=== PATIENT | male | born 1985 | race Asian ===

== ENCOUNTER 2020-11-27 16:50 | Emergency (ER) | payer MEDICAID ==
[~2020-11-27] VITALS: Ht 165.1 cm; Wt 61.7 kg
--- NOTE | 2020-11-27 17:27 | NUR ---
[id number] FROM [facility] [employer]ING [facility]. 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 PT SLEEPY, AWAKEN BY VERBAL STIMULI & WILL GO BACK TO SLEEP. RR EVEN & UNLABORED. PLACED ON WATER AND GAS HELPER, SR. PT SEEN & EVAL'D BY DR. GARNETT. WILL CONT TO MONITOR.
[2020-11-27 17:30] LABS: BASOPHILS % (AUTO) 0.4 % (0.0-2.0); EOSINOPHILS % (AUTO) 4.6 % (0.0-6.0); HEMATOCRIT 39 % (39-51); HEMOGLOBIN 12.9 g/dL (13.5-17.5); LYMPHOCYTES # (AUTO) 2.2 /CMM (0.8-4.8); LYMPHOCYTES % (AUTO) 28.5 % (20.0-44.0); MEAN CORPUSCULAR HGB CONC 33 g/dl (31.0-36.0); MEAN CORPUSCULAR VOLUME 91 fL (80-96); NEUTROPHILS # (AUTO) 4.2 /CMM (1.8-8.9); NEUTROPHILS % (AUTO) 53.5 % (43.0-81.0); PLATELET COUNT (AUTO) 267 /CMM (150-450); RED BLOOD CELL COUNT(AUTO) 4.28 MIL/uL (4.5-6.0); WHITE BLOOD COUNT (AUTO) 7.8 K/uL (4.3-11.0)
--- NOTE | 2020-11-27 18:01 | NUR ---
PT TO CT VIA [facility].
[2020-11-27 18:15] LABS: CALCIUM, SERUM 9.1 mg/dL (8.5-10.1); CARBON DIOXIDE 24 mmol/L (21-32); CHLORIDE 108 mmol/L (98-107); CREATININE 0.8 mg/dL (0.6-1.3); GLUCOSE 129 mg/dL (74-106); POTASSIUM 4.6 mmol/L (3.5-5.1); SODIUM SERUM 147 mmol/L (136-145); UREA NITROGEN, BLOOD 21 mg/dL (7-18)
--- NOTE | 2020-11-27 18:15 | NUR ---
PT REFUSED COVID TEST, ERMD AWARE.
[2020-11-27 18:21] LABS: ALANINE AMINOTRANSFERASE 46 U/L (12-78); ALCOHOL, BLOOD < 3 mg/dL (0-0); ALKALINE PHOSPHATASE 48 U/L (46-116); ASPARTATE AMINOTRANSFERASE 38 U/L (15-37); BILIRUBIN,TOTAL 0.7 mg/dL (0.2-1.0); TOTAL PROTEIN, SERUM 7.1 g/dL (6.4-8.2)
[2020-11-27 18:48] LABS: ALBUMIN 3.7 g/dL (3.4-5.0)
--- NOTE | 2020-11-27 19:17 | NUR ---
Patient is resting comfortably in bed with eyes closed. Easily aroused. VSS
[2020-11-27 19:56] LABS: BILIRUBIN,URINE NEGATIVE (NEGATIVE); COLOR,URINE YELLOW (YELLOW); LEUKOCYTE ESTERASE ,URINE NEGATIVE (NEGATIVE); NITRITE, URINE NEGATIVE (NEGATIVE); PH,URINE 5.5 (5.0-8.0); PROTEIN,URINE NEGATIVE (NEGATIVE); UGLUCOSE NEGATIVE (NEGATIVE); UROBILINOGEN,URINE 0.2 EU/dL (0.2)
[2020-11-27 20:18] LABS: BACTERIA,URINE None seen /HPF (None Seen); SQUAMOUS EPITHELIAL CELL,UR None Seen /HPF (None Seen); WBC,URINE 0-2 /HPF (0-3)
--- NOTE | 2020-11-27 21:26 | NUR ---
Patient is resting comfortably in bed with eyes closed. Easily aroused. VSS
--- NOTE | 2020-11-27 23:33 | NUR ---
ART MILL SUPERVISOR AT BEDSIDE FOR EVAL.
[2020-11-27] MEDS ORDERED: HALOPERIDOL LACTATE INJ 5 MG/ML VIAL ONE (23:36)
[2020-11-28] MEDS ORDERED: HALOPERIDOL LACTATE INJ 5 MG/ML VIAL IM ONE
--- NOTE | 2020-11-28 08:38 | NUR ---
PATIENT RESTING, NO DISTRESS NOTED. NEEDS ATTENDED, KEPT COMFORTABLE.
--- NOTE | 2020-11-28 10:20 | NUR ---
Flat Clothier note: This STABLE MANAGER attempted to meet with the patient, however per ED RN Gener, patient is still not arousable due to medications that were provided earlier today. Per medical records, plisse machine operator helper Rodney Celeste attempted to meet with the patient last night, but patient's mental status was altered and therefore Art was not able to interview the patient. Flat Clothier will attempt to follow-up with the patient later today.
--- NOTE | 2020-11-28 12:59 | NUR ---
Supervisor Cleaning And Annealing note: SW spoke to JAYLEN Krueger who stated that the patient is still not arousable. JAYLEN Krueger stated that he will notify SW when patient is awake. SS will continue to follow-up with nursing and attempt to meet with the patient at a later time.
--- NOTE | 2020-11-28 13:56 | NUR ---
PATIENT DENIES SI/HI, SEEN AND EVALUATED BY [employer]. NO DISTRESS NOTED.
--- NOTE | 2020-11-28 14:05 | NUR ---
"Bridge Worker Apprentice consult: family services worker consult requested for homelessness. Patient is 35-year-old, male. Per chart, patient was found in a parking lot and brought in by ambulance on 11/27/20 for altered mental status. SW met with patient at his bedside in the emergency department. Patient was alert and oriented x3. Patient was unable to recall the reason he was brought into the hospital. Patient presented disheveled. Patient stated that he is currently homeless and has been homeless for the last 9 years. Patient stated that his current source of income is [employer]. SW asked patient if he has access to social support and patient stated that he has no support. SW assessed patients history of substance use. Patient denies recent substance use. Patient stated that his last amphetamine use was years ago. SW assessed patients history of mental illness and patient stated that he has a history of Schizophrenia and currently takes Seroquel. Patient stated that he has a history of hallucinations which include visual and auditory type. Patient stated that he is currently experiencing hallucinations as evidenced by his statement, I see people and demons and theyre speaking to me. Patient denies current suicidal or homicidal ideation. SW offered patient resources for homelessness. Patient accepted the resources and stated that he would follow up independently. SW asked patient to sign homeless waiver and patient signed. SW filed waver in the patients chart. Patient stated that he will return to his prior living arrangement on the streets and will investigate shelters independently. SW discussed transportation with the patient and patient stated that he is able to walk or use public transportation. PLAN: Patient plans to return to prior living arrangement on the streets at the time of discharge. No further SS intervention, however, SW will remain available as needed. Year-round shelters: [facility] [address] [place] [address] ; [facility] [address] [place] [address]; [place] [facility] [id number] [facility]. [facility] [address] SPA 4 | [facility] [place] Provider: First to Serve Address: [address], [address] # of Beds: 48 Population Served: [facility] Provider: First to Serve Address: [address] [facility], [address] # of Beds: 73 Population Served: Coed SPA 6 | [facility] Provider: [facility] at Last [facility]: [address] [facility], [address] # of Beds: 63 Population Served: Coed SPA 3 | [facility] Provider: [facility] [place] Address: [address] [facility], [address] # of Beds: 75 Population Served: Coed SPA 8 | [facility] Provider: [facility] [place] Address: [address] [facility], [address] # of Beds: 80 Population Served: Coed SPA 1 | [facility] Provider: [facility] [place] Address: [address] [place] [address], [address] # of Beds: 85 Population Served: Coed SPA 2 | [facility] Provider: [facility] Address: Confidential (please call for location) # of Beds: 52 Population Served: Coed [facility] 4 | [facility] Provider: [facility] Address: [address] [facility] [facility], [address] # of Beds: 49 Population Served: [facility] Provider: First To Serve Address: [address] [place] [address], [address] # of Beds: 27 Population Served: Jhon Hygiene: [facility]: [address] [place] DaeeTobi Iniguez ; [facility] [address] [facility] ; [facility] [address] . Food Resources: [place] [facility] at [facility]- [address] [place]; Meet Each Need with [facility]ign[facility] ([facility]) [address] [facility]; [facility] [address] [facility]; Our [facility] [address] [place] [facility] [place]. Mental Health resources provided: [facility] [address] [place], [place] [address] ; [facility] [place] [address] [facility] [address], [place] [address] ; [facility] [address] [facility] [place], [place] [id number] ; [facility] [address] [place], [place] [id number] Healthcare Clinics: [facility] [address] [facility], [address] [place]. [place] ; [facility] [address] [facility] [address] [place] [address]; [facility] [address] [place] [address] [phone]) [phone] Counseling--Outpatient [facility] [address] [facility], [address] [place], [place] [id number] (Specializes in in-depth psychotherapy for emotional distress: anxiety, depression, interpersonal conflicts, life transitions, childhood abuse) PSYCHIATRIC OUTPATIENT SERVICES [facility] Partial Hospitalization and Intensive Outpatient Program (Managed Care and [place] Only) [address] [facility] [id number] [facility] Partial Hospitalization and Outpatient Program [address] [place], [place] [id number] [facility] Partial Hospitalization and Outpatient Program [address] [facility]. [place], [place] [id number] [facility] [place] [facility] [address] [facility] [place], [place] [address] [facility] Partial Hospitalization and Outpatient Program [address] [place], [place] [phone] "
--- NOTE | 2020-11-28 14:07 | NUR ---
Patient discharged to home in stable condition. Written and verbal after care instructions given. Patient verbalizes understanding of instruction. Pt ambulatory with a steady gait Patient given written and verbal discharge instructions. Refuses offer of halfway placement. Patient given list of available shelters in surrounding area. Homeless waiver signed by the patient. Meal provided
[2020-11-28 14:15] VITALS: BP 102/52
== END 2020-11-28 14:16 | disposition home or self-care (01) ==
LOC: ER 16:52
DX: F29 Unspecified psychosis not due to a substance or known physiological condition (principal); D64.9 Anemia, unspecified; Z20.822 Contact with and (suspected) exposure to COVID-19
CPT/HCPCS: 36415; 70450; 80048; 80076; 80143 ×2; 80307; 80320; 81001; 85025; 87426; 96372; 99285; C9803; J1630; G0480